=== PATIENT | female | born 1955 | race Caucasian/White ===

== ENCOUNTER 2018-06-27 16:29 | Inpatient (IN) | payer OTHER ==
[~2018-06-27] VITALS: Ht 167.6 cm; Wt 76.5 kg
[2018-06-27] MEDS ORDERED: SOD CHLORIDE 0.9% 100 ML ONE ×2 (16:52→17:40)
[2018-06-27] MEDS ORDERED: IODIXANOL LOCM 100 ML BTL ONE (16:52)
[2018-06-27] MEDS ORDERED: IOHEXOL 100 ML ONE (17:40)
[2018-06-27] MEDS ORDERED: TERB250T13 PO (17:49)
[2018-06-27] MEDS ORDERED: ASPIRIN 81 MG TAB PO ONE (18:00)
--- NOTE | 2018-06-27 18:01 | ERD ---
ER Documentation Chief Complaint Chief Complaint pt is caprice family with c/o L sided facial numbness,blurry vision, [id number] HPI This is a 63-year-old female with no reported past medical history who is presenting with transient now resolved left-sided facial numbness, facial droop and left-sided blurry vision. The patient was last known well at about 3 AM this morning. The patient was reportedly traveling back from [place]. She took a several hour flight and then took a 7-hour car ride from [place] to [place]. She got in at around 1 AM this morning and went to sleep at around 3 AM. The patient reports that she felt well with no issues at that time. The patient woke up at around 10:30 AM with her symptoms. Her symptoms seem to get better, so she went back to sleep. She woke up at around 3 PM this afternoon and her symptoms still seemed to be there. When her family assessed her, she did appear to have a left-sided facial numbness. The family reports no facial droop at that time. However, she seemed to be imbalanced, which is ultimately what prompted them to bring the patient to the hospital. The patient now reports that her symptoms have almost completely resolved. She feels fatigued and a little lightheaded, but otherwise she feels well. She denies any facial numbness or tingling. She denies any blurry vision. She denies any weakness or numbness or tingling to the extremities. She does not endorse any coordination issues. She denies any pain or swelling to the lower extremities. She denies any chest pain or shortness of breath or pleuritic pain. The patient denies feeling sick recently. The patient denies fever or chills. The patient has had no headache. The patient does not endorse neck or back pain. The patient denies dizziness. The patient denies nausea or vomiting. The patient denies abdominal pain. The patient denies changes to bowel movements or urination. ROS All systems reviewed and are negative except as per history of present illness. Medications Home Meds Reported Medications Terbinafine Hcl* (Terbinafine Hcl*) 250 Mg Tablet, 250 MG PO DAILY, TAB 06/27/18 Allergies Allergies: Coded Allergies: No Known Allergy (Unverified , 06/27/18) PMhx/Soc History of Surgery: Yes (Hysterectomy) Anesthesia Reaction: No Hx Neurological Disorder: No Hx Respiratory Disorders: No Hx Cardiac Disorders: No Hx Psychiatric Problems: No Hx Miscellaneous Medical Probl: No Hx Alcohol Use: No Hx Substance Use: No Hx Tobacco Use: No Smoking Status: Never smoker FmHx Family History: No diabetes Physical Exam Vitals Vital Signs Date Temp Pulse Resp B/P (MAP) Pulse Ox O2 O2 Flow FiO2 Time Delivery Rate 06/27/18 68 18 125/73 100 Room Air 16:40 (90) 06/27/18 98.0 74 18 129/73 97 16:37 (91) Physical Exam Const: No apparent distress, well-developed, well-nourished Head: Normocephalic, Atraumatic Eyes: Normal Conjunctiva. Extraocular movements intact. Pupils equal, round and reactive to light ENT: Normal External Ears, Nose and Mouth. Neck: Full range of motion. No meningismus. Resp: Clear to auscultation bilaterally, No wheezes, rales or rhonchi Cardio: Regular rate and rhythm. No murmurs, rubs or gallops Abd: Soft, non tender, non distended. Normal bowel sounds Skin: No petechiae or rashes Back: No midline tenderness. No CVA tenderness Ext: No cyanosis, or edema Neur: Awake and alert, oriented 4. Cranial nerves intact. No facial droop. Normal strength, sensation and coordination. Psych: Normal Mood and Affect Result Diagram: 06/27/18 1700 06/27/18 1700 Results 24 hrs Laboratory Tests Test 06/27/18 17:00 06/27/18 17:32 White Blood Count 4.1 10^3/ul Red Blood Count 4.67 10^6/ul Hemoglobin 13.7 g/dl Hematocrit 40.9 % Mean Corpuscular Volume 87.6 fl Mean Corpuscular Hemoglobin 29.3 pg Mean Corpuscular Hemoglobin Concent 33.5 g/dl Red Cell Distribution Width 13.1 % Platelet Count 228 10^3/UL Mean Platelet Volume 10.0 fl Immature Granulocytes % 0.500 % Neutrophils % 55.0 % Lymphocytes % 29.1 % Monocytes % 12.5 % Eosinophils % 2.2 % Basophils % 0.7 % Nucleated Red Blood Cells % 0.0 /100WBC Immature Granulocytes # 0.020 10^3/ul Neutrophils # 2.3 10^3/ul Lymphocytes # 1.2 10^3/ul Monocytes # 0.5 10^3/ul Eosinophils # 0.1 10^3/ul Basophils # 0.0 10^3/ul Nucleated Red Blood Cells # 0.0 10^3/ul Prothrombin Time 12.6 Sec Prothrombin Time Ratio 1.0 INR International Normalized Ratio 0.93 Activated Partial Thromboplast Time 26.1 Sec Sodium Level 139 mmol/L Potassium Level 3.7 mmol/L Chloride Level 105 mmol/L Carbon Dioxide Level 27 mmol/L Anion Gap 7 Blood Urea Nitrogen 7 mg/dl Creatinine 0.47 mg/dl Est Glomerular Filtrat Rate mL/min > 60 mL/min Glucose Level 157 mg/dl Hemoglobin A1c 5.4 % Calcium Level 9.4 mg/dl Creatine Kinase 262 IU/L Creatine Kinase Index 0.6 Creatinine Kinase MB (Mass) 1.63 ng/ml Troponin I < 0.012 ng/ml Triglycerides Level 70 mg/dl Cholesterol Level 184 mg/dl LDL Cholesterol, Calculated 81 mg/dl HDL Cholesterol 89 mg/dl Cholesterol/HDL Ratio 2.0 RATIO Ethyl Alcohol Level < 10.0 mg/dl Urine Color YELLOW Urine Clarity CLEAR Urine pH 7.0 Urine Specific [place] 1.023 Urine Ketones NEGATIVE mg/dL Urine Nitrite NEGATIVE mg/dL Urine Bilirubin NEGATIVE mg/dL Urine Urobilinogen NEGATIVE mg/dL Urine Leukocyte Esterase NEGATIVE Nicole/ul Urine Microscopic RBC 5 /HPF Urine Microscopic WBC 1 /HPF Urine Hemoglobin 1+ mg/dL Urine Glucose NEGATIVE mg/dL Urine Total Protein NEGATIVE mg/dl Urine Opiates Screen Negative Urine Barbiturates Negative Urine Amphetamines Screen Negative Urine Benzodiazepines Screen Negative Urine Cocaine Screen Negative Urine Cannabinoids Negative Current Medications Medications Dose Sig/Luisito Start Time Status Last (Trade) Ordered Route PRN Stop Time Admin Dose Reason Admin IV Flush 10 ml STK-MED 06/27/18 DC (NS 10 ml) ONCE .ROUTE 17:40 06/27/18 17:41 Sodium 100 ml @ ud STK-MED 06/27/18 DC Chloride ONCE .ROUTE 17:40 06/27/18 17:41 Iohexol 100 ml @ ud STK-MED 06/27/18 DC ONCE .ROUTE 17:40 06/27/18 17:41 Aspirin 324 mg ONCE ONCE 06/27/18 DC 06/27/18 (Aspirin) PO 18:00 18:05 06/27/18 18:01 Enoxaparin 60 mg ONCE ONCE 06/27/18 DC Sodium SC 19:00 (Lovenox) 06/27/18 19:01 Procedures/MDM MDM The patient's presentation warrants further investigation. Previous medical records, if available, were reviewed. LABS The patient's laboratory testing was obtained and reviewed. No emergent treatment was required unless described below. CBC: No E/o systemic infection or severe anemia or thrombocytopenia Chemistry: No E/o severe acidosis or alkalosis or renal failure or diabetic ketoacidosis PT/INR: No E/o significant coagulopathy Troponin: No E/o acute ischemia Urine: No E/o acute infection or hematuria Tox: No E/o alcohol abuse. EKG EKG read by me: Rate/Rhythm: Regular rate and rhythm at a rate of 66 bpm Intervals: Normal [place]: Normal Impression: No evidence of acute ischemia or arrhythmia IMAGING Imaging and Radiology interpretation reviewed. CT Head FINDINGS: There is no intracranial hemorrhage, mass effect, or midline shift. The ventricles and sulci are normal in size and configuration. there is focal hypoattenuation within the right frontal periventricular white matter. Focal and septal malacia seen of a right frontal gyrus. There is good engle-white matter differentiation throughout the cerebral hemispheres. The visualized brainstem and cerebellum are unremarkable. No extra-axial fluid collection is seen. The visualized paranasal sinuses and osseous structures are grossly unremarkable. IMPRESSION: No evidence of acute intracranial pathology. 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 The rest the brain is unremarkable. The findings were discussed with Dr. Suazo of the emergency room department at 05:00 p.m. Electronically viewed and signed by Physician Angi on 06/27/2018 17:04 CTA H&N IMPRESSION: 1. Negative for evidence of hemodynamically significant stenosis or occlusion of the major cervical and intracranial arteries. Please note that evaluation of the extracranial carotid arteries is somewhat limited due to motion artifact. Negative for significant atherosclerotic plaque. 2. Negative for evidence of dissection, aneurysm, or vascular malformation. 3. Focal hypodensity in the white matter of the right frontal lobe may be from age indeterminate ischemia. Negative for abnormal intraparenchymal enhancement. If there is concern for recent ischemia, consider brain MRI for further evaluation. 4. Acute PE to a segmental branch of the left upper lobe pulmonary artery. Recommend further evaluation with CT pulmonary angiogram. Findings are discussed with Dr Suazo by Dr. Lindsey Lares on June 27, 2018 at 5:33 pm [facility]. Measurements of cervical internal carotid artery stenosis were performed according to NASCET criteria. Direct measurements of vessel diameters was made in reference to measurements of the distal internal carotid artery diameter. Electronically viewed and signed by Physician Margarita on 06/27/2018 17:34 CXR FINDINGS: The heart is normal in size. The pulmonary vessels are normal in caliber. The lungs are clear. The costophrenic angles are sharp. The visualized bony thorax is unremarkable. IMPRESSION: No acute cardiopulmonary disease. Electronically viewed and signed by Juan Jose Rene MD, on 06/27/2018 17:48 CTA Chest FINDINGS: Normal opacification of the mediastinal structures is seen . Filling defects are noted to the right upper upper and left lower lobe pulmonary arterial tree, third order branches bilaterally consistent with acute pulmonary emboli. No aortic dissection or pericardial effusion noted. No saddle emboli seen. Lung windows demonstrate symmetric lung volumes. No subpleural blebs, pne umothorax, pleural effusion, parenchymal masses or interstitial nodularity seen. CT abdomen: Liver, distended thick-walled stomach, normal pancreas, gallbladder, upper pole left kidneys are seen. Normal opacification of the origins of celiac, SMA, bilateral renal arteries noted. Common hepatic artery arises directly from the aorta. Moderate stool noted in the bowel IMPRESSION: Bilateral pulmonary emboli to the third order branches of the right upper and left lower lung johnson Electronically viewed and signed by Physician Avelino on 06/27/2018 18:46 BLE Doppler FINDINGS: There is normal compressibility and flow within the bilateral common femoral, femoral , posterior tibial and popliteal veins. IMPRESSION: No sonographic evidence for deep venous thrombosis. Electronically viewed and signed by Kory Rodriguez MD on 06/27/2018 18:28 TREATMENT/DISPOSITION The patient presents for concerns of stroke-like symptoms. That said, the patient's symptoms are now resolved. The patient's NIH stroke scale is now 0. The patient's symptoms are potentially related to a TIA. The patient also endorsed decreased blurry vision to the left eye. A CRE O is also a possibility, though her vision is now resolved. Her visual acuity is now normal and she has no visual field deficits. The patient's CT reveals age- indeterminate ischemia in the right frontal lobe, but it appears to be encephalomalacia on the CT scan without contrast. I do not suspect an acute right frontal lobe CVA. The patient is not a TPA candidate. Additionally, there is no evidence of large vessel occlusion. The patient has not a thrombectomy candidate. The patient was treated with aspirin in the emergency department. I do feel the patient requires admission for further evaluation and management of a possible TIA. While evaluating for the possibility of TIA, the CTA of the head and neck revealed evidence concerning for an acute PE to the segmental branch of the left upper lobe pulmonary artery. A CTA of the chest was completed that revealed bilateral segmental PEs. this is likely related to her prolonged flight and drive. Bilateral lower extremity Dopplers were ordered which were negative. The patient denies any symptoms of pulmonary embolism aside from mild lightheadedness. The patient was treated with Lovenox. ADMISSION At this time, I feel that the patient requires admission for further evaluation and management. The patient will be admitted to panel in accordance with the patient's insurance. The patient was accepted by Dr. Meeks at 7 PM on June 27, 2018. CRITICAL CARE NOTE Time: 36 minutes excluding all billable procedures. Treatments/Evaluations: The patient was at risk of hemodynamic compromise. Timing of critical care involved close serial monitoring, evaluation of the patient's medical record including previous records & current laboratory/imaging studies, potential interventions for prevention of hemodynamic/ cardiopulmonary/ neurologic compromise, maintaining tight fluid balance, and any discussions with the family and/or consultants regarding the patient's status and prognosis. Disclaimer: Inadvertent spelling and grammatical errors are likely due to EHR/dictation software use and do not reflect on the overall quality of patient care. Note that the electronic time recorded on this note does not necessarily reflect the actual time of the patient encounter. Departure Diagnosis: Primary Impression: Pulmonary embolism Pulmonary embolism type: unspecified Chronicity: acute Acute cor pulmonale presence: without acute cor pulmonale Qualified Codes: I26.99 - Other pulmonary embolism without acute cor pulmonale Additional Impressions: Left facial numbness Blurry vision, left eye Lightheadedness Pre-syncope Condition: Serious FLORY SUAZO MD Jun 27, 2018 18:01
[2018-06-27] MEDS ORDERED: ENOXAPARIN 60 MG/0.6 ML SYG SC ONE (19:00)
[2018-06-27] MEDS ORDERED: NACL 0.9% 3 ML SYG IV SCH (19:30)
[2018-06-27] MEDS ORDERED: ACETAMINOPHEN 325 MG TAB PO PRN ×2 (19:30)
[2018-06-27] MEDS ORDERED: MAGNESIUM HYDROXIDE 30ML CUP PO PRN (19:30)
[2018-06-27] MEDS ORDERED: HYDROCODONE/APAP (5/325) TAB PO PRN (19:30)
[2018-06-27] MEDS ORDERED: ONDANSETRON 4 MG INJ IV PRN ×2 (19:30)
[2018-06-27] MEDS ORDERED: DOCUSATE SODIUM 100 MG CAP PO PRN (19:30)
[2018-06-27] MEDS ORDERED: hydrALAzine 20 MG INJ IV PRN (19:30)
[2018-06-27] MEDS ORDERED: morphine 2 MG INJ IV PRN (19:30)
[2018-06-27] MEDS ORDERED: LORAZEPAM 2 MG INJ IV PRN (19:30)
[2018-06-27] MEDS ORDERED: ALBUTEROL/IPRATROPIUM (NEB) 3 ML AMP HHN PRN (19:30)
[2018-06-27] MEDS ORDERED: NITROGLYCERIN (SL) 0.4 MG TAB SL PRN (19:30)
[2018-06-27] MEDS ORDERED: ATORVASTATIN 80 MG TAB PO SCH (21:00)
[2018-06-27 21:10] VITALS: BP 125/75; PULSE 64; RESP 18
[2018-06-27 21:12] VITALS: PULSE 64
[2018-06-27 21:33] VITALS: Ht 167.6 cm; Wt 76.5 kg
[2018-06-27] MEDS: SOD CHLORIDE 0.45% 1,000 ML IV SCH (22:14)
--- NOTE | 2018-06-27 23:53 | HP ---
Date/Time of Note Date/Time of Note DATE: 06/27/18 TIME: 23:53 Assessment/Plan VTE Prophylaxis Pharmacological prophylaxis: LMWH Lines/Catheters IV Catheter Type (from [facility]): Peripheral IV Assessment/Plan Assessment/Plan 1. TIA -Head CT negative for acute findings. CT Angio of the head and neck without hemodynamically significant stenosis -Follow-up MRI of the brain, 2D echo -Aspirin, statin -Speech/swallow and PT eval -Neurology consult 2. Bilateral PE: Incidentally found on CT angios the neck. This was confirmed with CTPA -Patient just traveled back from [place]. She reported long flights as well as long car ride -She is on a treatment dose Lovenox. She will be transition to oral blood thinner Result Diagram: 06/27/18 1700 06/27/18 1700 Results 24hrs Laboratory Tests Test 06/27/18 17:00 06/27/18 17:32 06/27/18 19:29 White Blood Count 4.1 L Red Blood Count 4.67 Hemoglobin 13.7 Hematocrit 40.9 Mean Corpuscular Volume 87.6 Mean Corpuscular Hemoglobin 29.3 Mean Corpuscular Hemoglobin Concent 33.5 Red Cell Distribution Width 13.1 Platelet Count 228 Mean Platelet Volume 10.0 Immature Granulocytes % 0.500 H Neutrophils % 55.0 Lymphocytes % 29.1 Monocytes % 12.5 H Eosinophils % 2.2 Basophils % 0.7 Nucleated Red Blood Cells % 0.0 Immature Granulocytes # 0.020 Neutrophils # 2.3 Lymphocytes # 1.2 Monocytes # 0.5 Eosinophils # 0.1 Basophils # 0.0 Nucleated Red Blood Cells # 0.0 Prothrombin Time 12.6 13.0 Prothrombin Time Ratio 1.0 1.0 INR International Normalized Ratio 0.93 0.97 Activated Partial Thromboplast Time 26.1 27.5 Sodium Level 139 Potassium Level 3.7 Chloride Level 105 Carbon Dioxide Level 27 Anion Gap 7 Blood Urea Nitrogen 7 Creatinine 0.47 Est Glomerular Filtrat Rate mL/min > 60 Glucose Level 157 Hemoglobin A1c 5.4 Calcium Level 9.4 Creatine Kinase 262 H Creatine Kinase Index 0.6 Creatinine Kinase MB (Mass) 1.63 Troponin I < 0.012 Triglycerides Level 70 Cholesterol Level 184 LDL Cholesterol, Calculated 81 HDL Cholesterol 89 Cholesterol/HDL Ratio 2.0 Ethyl Alcohol Level < 10.0 H Urine Color YELLOW Urine Clarity CLEAR Urine pH 7.0 Urine Specific [place] 1.023 Urine Ketones NEGATIVE Urine Nitrite NEGATIVE Urine Bilirubin NEGATIVE Urine Urobilinogen NEGATIVE Urine Leukocyte Esterase NEGATIVE Urine Microscopic RBC 5 Urine Microscopic WBC 1 Urine Hemoglobin 1+ H Urine Glucose NEGATIVE Urine Total Protein NEGATIVE Urine Opiates Screen Negative Urine Barbiturates Negative Urine Amphetamines Screen Negative Urine Benzodiazepines Screen Negative Urine Cocaine Screen Negative Urine Cannabinoids Negative Free Thyroxine 1.22 HPI/ROS Admit Date/Time Admit Date/Time Jun 27, 2018 at 19:11 Hx of Present Illness This is a 63-year-old female with no significant past medical history who was brought to the ER for left facial numbness/droop, blurry vision, generalized we akness, dizziness. Patient just returned back from [place] [employer]. She slept most of the day and woke up around 1500 with the above symptoms. When presented to ER, vitals were stable. Head CT old infarct without acute intracranial findings. CT angios of the head and neck shows focal hypodensity in the white matter of the right frontal lobe may be from age indeterminate ischemia, but without hemodynamically significant stenosis. Incidentally however, PE was noted. CTPA was then done which showed bilateral PE. As mentioned above, patient just flew back from [place]. Vital stable, oxygen saturation 94-98% on room air. PMH/Family/Social Past Medical History Medical History: other (See HPI) Medications Current Medications Ondansetron HCl (Zofran Inj) 4 mg ER BRIDGE PRN IV NAUSEA/VOMITING; Start 06/27/18 at 19:30; Stop 06/28/18 at 19:29 Acetaminophen (Tylenol Tab) 650 mg ER BRIDGE PRN PO .MILD PAIN 1-3 OR TEMP; Start 06/27/18 at 19:30; Stop 06/28/18 at 19:29 IV Flush (NS 3 ml) 3 ml PER PROTOCOL IV ; Start 06/27/18 at 19:30 Ondansetron HCl (Zofran Inj) 4 mg Q6H PRN IV NAUSEA/VOMITING; Start 06/27/18 at 19:30 Acetaminophen (Tylenol Tab) 650 mg Q6H PRN PO .PAIN 1-3 OR TEMP; Start 06/27/18 at 19:30 Acetaminophen/ Hydrocodone Bitart ([place] (5/325)) 1 tab Q6H PRN PO .MOD PAIN 4- 6; Start 06/27/18 at 19:30 Morphine Sulfate (morphine) 2 mg Q4H PRN IV .SEVERE PAIN 7-10; Start 06/27/18 at 19:30 Docusate Sodium (Colace) 100 mg Q12H PRN PO .CONSTIPATION; Start 06/27/18 at 19:30 Magnesium Hydroxide (Milk Of Mag) 30 ml DAILY PRN PO .CONSTIPATION; Start 06/27/18 at 19:30 Sodium Chloride 1,000 ml @ 75 mls/hr [id number] IV Last administered on 06/27/18at 22:14; Admin Dose 75 MLS/HR; Start 06/27/18 at 19:06 Lorazepam (Ativan) 0.5 mg Q6H PRN IV ANXIETY; Start 06/27/18 at 19:30 Albuterol/ Ipratropium (Duoneb) 3 ml Q4H RESP THERAPY PRN HHN SHORTNESS OF BREATH; Start 06/27/18 at 19:30 Hydralazine HCl (Apresoline) 10 mg Q6H PRN IV ELEVATED BLOOD PRESSURE; Start 06/27/18 at 19:30 Nitroglycerin (Nitroglycerin (Sl Tab) 0.4 Mg) 1 tab Q5M PRN SL ANGINA; Start 06/27/18 at 19:30 Aspirin (Ecotrin) 325 mg DAILY PO ; Start 06/28/18 at 09:00 Atorvastatin Calcium (Lipitor) 80 mg HS PO Last administered on 06/27/18at 22:14; Admin Dose 80 MG; Start 06/27/18 at 21:00 Coded Allergies: No Known Allergy (Unverified , 06/27/18) Past Surgical History Past Surgical Hx: other (See HPI) Family History Significant Family History: no pertinent family hx Social History Alcohol Use: none Smoking Status: Never smoker Drug Use: none Exam/Review of Systems Vital Signs Vitals Vital Signs Date Temp Pulse Resp B/P (MAP) Pulse Ox O2 O2 Flow FiO2 Time Delivery Rate 06/27/18 97.9 64 18 125/75 95 Room Air 21:10 (92) Exam Constitutional: other (No acute distress) Head: normocephalic, atraumatic Eyes: EOMI, PERRL Respiratory: normal air movement Cardiovascular: regular rate and rhythm, nl pulses Gastrointestinal: soft Extremities: normal pulses RADHA ZUNIGA MD Jun 27, 2018 23:53
[2018-06-28] VITALS (9 sets, daily range): BP systolic 97–112; BP diastolic 50–69; PULSE 64–75; RESP 18
[2018-06-28] MEDS: SOD CHLORIDE 0.45% 1,000 ML IV SCH ×3 (08:26→21:55)
[2018-06-28] MEDS: ENOXAPARIN 80 MG/0.8 ML SYG SC SCH ×2 (08:32→21:00)
[2018-06-28] MEDS ORDERED: ASPIRIN (EC) 325 MG TAB PO SCH (09:00)
[2018-06-28] MEDS ORDERED: ASPIRIN (EC) 81 MG TAB PO SCH (09:00)
--- NOTE | 2018-06-28 09:18 | CONS ---
Assessment/Plan Assessment/Plan Hospital Course 63 F w/o reported PMHx, who presents for evaluation of hemifacial numbness...for which neurology is consulted.. 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 Of note, she was additionally found to have acute pulmonary emboli...for which she is now on therapeutic anticoagulation. The clinical picture raises suspicion for intracardiac shunt.. CTA Head and Neck are without significant cerebrovascular pathology.. LDL, A1C, UDS ok P: Low threshold to repeat head CT for interval neurologic change, given anticoagulation in the context of acute stroke. Hold asa while on therapeutic anticoagulation.. Lipitor OK Await echocardiogram Add ESR, RPR PT/OT/ST as necessary Other management per primary Will follow clinically Consultation Date/Type/Reason Admit Date/Time Jun 27, 2018 at 19:11 Type of Consult Neurology Reason for Consultation L face numbness/weakness; eval for stroke Requesting Provider: DAVID LALA Date/Time of Note DATE: 06/28/18 TIME: 09:18 Hx of Present Illness The pt confirms the story below. She endorses diminished facial sensation on the L; currently denies other neuro logic sx. It is elsewhere noted: Hx of Present Illness This is a 63-year-old female with no significant past medical history who was brought to the ER for left facial numbness/droop, blurry vision, generalized weakness, dizziness. Patient just returned back from [place] [employer] [place]. She slept most of the day and woke up around 1500 with the above symptoms. When presented to ER, vitals were stable. Head CT old infarct without acute intracranial findings. CT angios of the head and neck shows focal hypodensity in the white matter of the right frontal lobe may be from age indeterminate ischemia, but without hemodynamically significant stenosis. Incidentally however, PE was noted. CTPA was then done which showed bilateral PE. As mentioned above, patient just flew back from [place]. Vital stable, oxygen saturation 94-98% on room air. negative unless noted otherwise in HPI Exam/Review of Systems Exam Vitals Vital Signs Date Temp Pulse Resp B/P (MAP) Pulse Ox O2 O2 Flow FiO2 Time Delivery Rate 06/28/18 64 08:08 06/28/18 98.5 18 104/63 94 07:14 (77) 06/28/18 Room Air 04:00 Intake and Output 06/27/18 06/27/18 06/28/18 1515:00 23:00 07:00 IntakeIntake Total 400 ml BalanceBalance 400 ml Exam PE: Gen Appearance: No Apparent Distress HEENT: Normocephalic Cardiovascular: Regular rate Lungs: Clear bilaterally Abdomen: Soft Extremities: Dry NE: The patient was alert and oriented.. Language was normal. Fund of knowledge was normal. Pupils were equal and reactive to light. There was no afferent pupillary defect. Visual johnson were normal. Funduscopic examination was limited. Extra-ocular movements were full. Ptosis was absent. There was no nystagmus. Facial sensation was diminished on paulette L. Face was symmetric with normal strength. Hearing was intact. Palate movements were normal. Neck strength was normal. There was normal tongue bulk and speed of movement. Tone was normal. Muscle bulk was normal. I did not see fasciculations. Arms and legs were strong. Vibration sensation was normal. Temperature and pinprick sensation was normal. Rapid alternating movements were normal. There was no dysmetria. There was no intention tremor. Gait was deferred due to bedrest. Arm and leg reflexes were 2+ and symmetric. Chaney's sign was absent. Plantar responses were flexor. Results Result Diagram: 06/28/1862206/28/1823 Results 24hrs Laboratory Tests Test 06/27/18 17:00 06/27/18 17:32 06/27/18 19:29 06/28/18 06:23 White Blood Count 4.1 L 4.3 L Red Blood Count 4.67 4.47 Hemoglobin 13.7 12.9 Hematocrit 40.9 38.5 Mean Corpuscular 87.6 86.1 Volume Mean Corpuscular 29.3 28.9 L Hemoglobin Mean Corpuscular 33.5 33.5 Hemoglobin Concent Red Cell 13.1 13.2 Distribution Width Platelet Count 228 242 Mean Platelet Volume 10.0 9.9 Immature 0.500 H 0.000 L Granulocytes % Neutrophils % 55.0 55.7 Lymphocytes % 29.1 27.3 Monocytes % 12.5 H 11.5 H Eosinophils % 2.2 4.6 Basophils % 0.7 0.9 Nucleated Red Blood 0.0 0.0 Cells % Immature 0.020 0.000 Granulocytes # Neutrophils # 2.3 2.4 Lymphocytes # 1.2 1.2 Monocytes # 0.5 0.5 Eosinophils # 0.1 0.2 Basophils # 0.0 0.0 Nucleated Red Blood 0.0 0.0 Cells # Prothrombin Time 12.6 13.0 Prothrombin Time 1.0 1.0 Ratio INR International 0.93 0.97 Normalized Ratio Activated 26.1 27.5 Partial Thromboplast Time Sodium Level 139 140 Potassium Level 3.7 3.9 Chloride Level 105 107 Carbon Dioxide Level 27 27 Anion Gap 7 6 Blood Urea Nitrogen 7 9 Creatinine 0.47 0.46 Est Glomerular > 60 > 60 Filtrat Rate mL/min Glucose Level 157 92 # Hemoglobin A1c 5.4 5.3 Calcium Level 9.4 8.8 Creatine Kinase 262 H Creatine Kinase 0.6 Index Creatinine Kinase MB 1.63 (Mass) Troponin I < 0.012 Triglycerides Level 70 63 Cholesterol Level 184 165 LDL Cholesterol, 81 76 Calculated HDL Cholesterol 89 76 # Cholesterol/HDL 2.0 2.1 Ratio Ethyl Alcohol Level < 10.0 H Urine Color YELLOW Urine Clarity CLEAR Urine pH 7.0 Urine Specific 1.023 [place] Urine Ketones NEGATIVE Urine Nitrite NEGATIVE Urine Bilirubin NEGATIVE Urine Urobilinogen NEGATIVE Urine Leukocyte NEGATIVE Esterase Urine Microscopic 5 RBC Urine Microscopic 1 WBC Urine Hemoglobin 1+ H Urine Glucose NEGATIVE Urine Total Protein NEGATIVE Urine Opiates Screen Negative Urine Barbiturates Negative Urine Amphetamines Negative Screen Urine Negative Benzodiazepines Screen Urine Cocaine Screen Negative Urine Cannabinoids Negative Free Thyroxine 1.22 Phosphorus Level 5.0 H Magnesium Level 2.0 Thyroid Stimulating 2.630 Hormone (TSH) Medications Medication Current Medications Ondansetron HCl (Zofran Inj) 4 mg ER BRIDGE PRN IV NAUSEA/VOMITING; Start 06/16 05/06 at 19:30; Stop 06/28/18 at 19:29 Acetaminophen (Tylenol Tab) 650 mg ER BRIDGE PRN PO .MILD PAIN 1-3 OR TEMP; Start 06/27/18 at 19:30; Stop 06/28/18 at 19:29 IV Flush (NS 3 ml) 3 ml PER PROTOCOL IV ; Start 06/27/18 at 19:30 Ondansetron HCl (Zofran Inj) 4 mg Q6H PRN IV NAUSEA/VOMITING; Start 06/27/18 at 19:30 Acetaminophen (Tylenol Tab) 650 mg Q6H PRN PO .PAIN 1-3 OR TEMP; Start 06/27/18 at 19:30 Acetaminophen/ Hydrocodone Bitart ([place]rett (5/325)) 1 tab Q6H PRN PO .MOD PAIN 4- 6; Start 06/27/18 at 19:30 Morphine Sulfate (morphine) 2 mg Q4H PRN IV .SEVERE PAIN 7-10; Start 06/27/18 at 19:30 Docusate Sodium (Colace) 100 mg Q12H PRN PO .CONSTIPATION; Start 06/27/18 at 19:30 Magnesium Hydroxide (Milk Of Mag) 30 ml DAILY PRN PO .CONSTIPATION; Start 06/27/18 at 19:30 Sodium Chloride 1,000 ml @ 75 mls/hr [id number] IV Last administered on 06/27/18at 22:14; Admin Dose 75 MLS/HR; Start 06/27/18 at 19:06 Lorazepam (Ativan) 0.5 mg Q6H PRN IV ANXIETY; Start 06/27/18 at 19:30 Albuterol/ Ipratropium (Duoneb) 3 ml Q4H RESP THERAPY PRN HHN SHORTNESS OF BREATH; Start 06/27/18 at 19:30 Hydralazine HCl (Apresoline) 10 mg Q6H PRN IV ELEVATED BLOOD PRESSURE; Start 06/27/18 at 19:30 Nitroglycerin (Nitroglycerin (Sl Tab) 0.4 Mg) 1 tab Q5M PRN SL ANGINA; Start 06/27/18 at 19:30 Atorvastatin Calcium (Lipitor) 80 mg HS PO Last administered on 06/27/18at 22:14; Admin Dose 80 MG; Start 06/27/18 at 21:00 Enoxaparin Sodium (Lovenox) 75 mg Q12 SC Last administered on 06/28/18at 08:32; Admin Dose 75 MG; Start 06/28/18 at 09:00 Aspirin (Halfprin) 81 mg DAILY PO Last administered on 06/28/18at 08:27; Admin Dose 81 MG; Start 06/28/18 at 09:00 Past Medical History reviewed Medical History: other (See HPI) Home Meds Reported Medications Terbinafine Hcl* (Terbinafine Hcl*) 250 Mg Tablet, 250 MG PO DAILY, TAB 06/27/18 Medications Current Medications Ondansetron HCl (Zofran Inj) 4 mg ER BRIDGE PRN IV NAUSEA/VOMITING; Start 06/27/18 at 19:30; Stop 06/28/18 at 19:29 Acetaminophen (Tylenol Tab) 650 mg ER BRIDGE PRN PO .MILD PAIN 1-3 OR TEMP; Start 06/27/18 at 19:30; Stop 06/28/18 at 19:29 IV Flush (NS 3 ml) 3 ml PER PROTOCOL IV ; Start 06/27/18 at 19:30 Ondansetron HCl (Zofran Inj) 4 mg Q6H PRN IV NAUSEA/VOMITING; Start 06/27/18 at 19:30 Acetaminophen (Tylenol Tab) 650 mg Q6H PRN PO .PAIN 1-3 OR TEMP; Start 06/27/18 at 19:30 Acetaminophen/ Hydrocodone Bitart ([place] (5/325)) 1 tab Q6H PRN PO .MOD PAIN 4- 6; Start 06/27/18 at 19:30 Morphine Sulfate (morphine) 2 mg Q4H PRN IV .SEVERE PAIN 7-10; Start 06/27/18 at 19:30 Docusate Sodium (Colace) 100 mg Q12H PRN PO .CONSTIPATION; Start 06/27/18 at 19:30 Magnesium Hydroxide (Milk Of Mag) 30 ml DAILY PRN PO .CONSTIPATION; Start 06/27 at 19:30 Sodium Chloride 1,000 ml @ 75 mls/hr [id number] IV Last administered on 06/27/18at 22:14; Admin Dose 75 MLS/HR; Start 06/27/18 at 19:06 Lorazepam (Ativan) 0.5 mg Q6H PRN IV ANXIETY; Start 06/27/18 at 19:30 Albuterol/ Ipratropium (Duoneb) 3 ml Q4H RESP THERAPY PRN HHN SHORTNESS OF BREATH; Start 06/27/18 at 19:30 Hydralazine HCl (Apresoline) 10 mg Q6H PRN IV ELEVATED BLOOD PRESSURE; Start 06/27/18 at 19:30 Nitroglycerin (Nitroglycerin (Sl Tab) 0.4 Mg) 1 tab Q5M PRN SL ANGINA; Start 06/27/18 at 19:30 Atorvastatin Calcium (Lipitor) 80 mg HS PO Last administered on 06/27/18at 22:14; Admin Dose 80 MG; Start 06/27/18 at 21:00 Enoxaparin Sodium (Lovenox) 75 mg Q12 SC Last administered on 06/28/18at 08:32; Admin Dose 75 MG; Start 06/28/18 at 09:00 Aspirin (Halfprin) 81 mg DAILY PO Last administered on 06/28/18at 08:27; Admin Dose 81 MG; Start 06/28/18 at 09:00 Allergies: Coded Allergies: No Known Allergy (Unverified , 06/27/18) Past Surgical History reviewed Past Surgical Hx: other (See HPI) Social History reviewed Alcohol Use: none Smoking Status: Never smoker Drug Use: none JANINE SAMUELS NP Jun 28, 2018 09:18 FELICITY SMILEY Jun 28, 2018 12:43
--- NOTE | 2018-06-28 10:59 | PN ---
Date/Time of Note Date/Time of Note DATE: 06/28/18 TIME: 10:55 Assessment/Plan VTE Prophylaxis Risk score (from Ns)>0 risk: 2 SCD applied (from [facility]): No SCD contraindicated: other Pharmacological prophylaxis: LMWH Lines/Catheters IV C[facility]ter Type (from [facility]): Peripheral IV Assessment/Plan Hospital Course S: O: Vs - see below PE: Constitutional: lying in bed, no acute distress Head: normocephalic, atraumatic Eyes: EOMI, PERRL Respiratory: normal air movement Cardiovascular: regular rate and rhythm, nl pulses Gastrointestinal: soft Extremities: normal pulses MRI brain: IMPRESSION: 1. Acute infarct in the left thalamus. 2. Mild diffuse volume loss with mild chronic microvascular ischemic disease in the periventricular and deep white matter. 3. Small area of chronic infarct in the right frontal lobe. Assessment/Plan: 63-year-old female who presents with: 1. Left-sided weakness: Patient initially was diagnosed with TIA. However MRI brain results noted of the acute infarct in the left thalamus. Patient presently has no signs of any focal deficits.-Head CT negative for acute findings. CT Angio of the head and neck without hemodynamically significant stenosis as well per -Continue high-dose aspirin, statin, and continue to allow for permissive hypertension -Follow-up speech/swallow and PT eval -Neurology consulted as well, follow the recommendations. 2. Bilateral PE: Incidentally found on CT angios the neck. This was confirmed with CTPA-Patient just traveled back from [place]. She reported long flights as well as long car ride -Continue patient on treatment dose Lovenox. She will be transition to oral blood thinner upon discharge most likely Result Diagram: 06/28/18 0623 06/28/18 0623 Results 24hrs Laboratory Tests Test 06/27/18 17:00 06/27/18 17:32 06/27/18 19:29 06/28/18 06:23 White Blood Count 4.1 L 4.3 L Red Blood Count 4.67 4.47 Hemoglobin 13.7 12.9 Hematocrit 40.9 38.5 Mean Corpuscular 87.6 86.1 Volume Mean Corpuscular 29.3 28.9 L Hemoglobin Mean Corpuscular 33.5 33.5 Hemoglobin Concent Red Cell 13.1 13.2 Distribution Width Platelet Count 228 242 Mean Platelet Volume 10.0 9.9 Immature 0.500 H 0.000 L Granulocytes % Neutrophils % 55.0 55.7 Lymphocytes % 29.1 27.3 Monocytes % 12.5 H 11.5 H Eosinophils % 2.2 4.6 Basophils % 0.7 0.9 Nucleated Red Blood 0.0 0.0 Cells % Immature 0.020 0.000 Granulocytes # Neutrophils # 2.3 2.4 Lymphocytes # 1.2 1.2 Monocytes # 0.5 0.5 Eosinophils # 0.1 0.2 Basophils # 0.0 0.0 Nucleated Red Blood 0.0 0.0 Cells # Prothrombin Time 12.6 13.0 Prothrombin Time 1.0 1.0 Ratio INR International 0.93 0.97 Normalized Ratio Activated 26.1 27.5 Partial Thromboplast Time Sodium Level 139 140 Potassium Level 3.7 3.9 Chloride Level 105 107 Carbon Dioxide Level 27 27 Anion Gap 7 6 Blood Urea Nitrogen 7 9 Creatinine 0.47 0.46 Est Glomerular > 60 > 60 Filtrat Rate mL/min Glucose Level 157 92 # Hemoglobin A1c 5.4 5.3 Calcium Level 9.4 8.8 Creatine Kinase 262 H Creatine Kinase 0.6 Index Creatinine Kinase MB 1.63 (Mass) Troponin I < 0.012 Triglycerides Level 70 63 Cholesterol Level 184 165 LDL Cholesterol, 81 76 Calculated HDL Cholesterol 89 76 # Cholesterol/HDL 2.0 2.1 Ratio Ethyl Alcohol Level < 10.0 H Urine Color YELLOW Urine Clarity CLEAR Urine pH 7.0 Urine Specific 1.023 [place] Urine Ketones NEGATIVE Urine Nitrite NEGATIVE Urine Bilirubin NEGATIVE Urine Urobilinogen NEGATIVE Urine Leukocyte NEGATIVE Esterase Urine Microscopic 5 RBC Urine Microscopic 1 WBC Urine Hemoglobin 1+ H Urine Glucose NEGATIVE Urine Total Protein NEGATIVE Urine Opiates Screen Negative Urine Barbiturates Negative Urine Amphetamines Negative Screen Urine Negative Benzodiazepines Screen Urine Cocaine Screen Negative Urine Cannabinoids Negative Free Thyroxine 1.22 Phosphorus Level 5.0 H Magnesium Level 2.0 Thyroid Stimulating 2.630 Hormone (TSH) Exam/Review of Systems Exam Vitals Vital Signs Date Temp Pulse Resp B/P (MAP) Pulse Ox O2 O2 Flow FiO2 Time Delivery Rate 06/28/18 64 08:08 06/28/18 98.5 18 104/63 94 07:14 (77) 06/28/18 Room Air 04:00 Intake and Output 06/27/18 06/27/18 06/28/18 1515:00 23:00 07:00 IntakeIntake Total 400 ml BalanceBalance 400 ml Results Results 24hrs Laboratory Tests Test 06/27/18 17:00 06/27/18 17:32 06/27/18 19:29 06/28/18 06:23 White Blood Count 4.1 L 4.3 L Red Blood Count 4.67 4.47 Hemoglobin 13.7 12.9 Hematocrit 40.9 38.5 Mean Corpuscular 87.6 86.1 Volume Mean Corpuscular 29.3 28.9 L Hemoglobin Mean Corpuscular 33.5 33.5 Hemoglobin Concent Red Cell 13.1 13.2 Distribution Width Platelet Count 228 242 Mean Platelet Volume 10.0 9.9 Immature 0.500 H 0.000 L Granulocytes % Neutrophils % 55.0 55.7 Lymphocytes % 29.1 27.3 Monocytes % 12.5 H 11.5 H Eosinophils % 2.2 4.6 Basophils % 0.7 0.9 Nucleated Red Blood 0.0 0.0 Cells % Immature 0.020 0.000 Granulocytes # Neutrophils # 2.3 2.4 Lymphocytes # 1.2 1.2 Monocytes # 0.5 0.5 Eosinophils # 0.1 0.2 Basophils # 0.0 0.0 Nucleated Red Blood 0.0 0.0 Cells # Prothrombin Time 12.6 13.0 Prothrombin Time 1.0 1.0 Ratio INR International 0.93 0.97 Normalized Ratio Activated 26.1 27.5 Partial Thromboplast Time Sodium Level 139 140 Potassium Level 3.7 3.9 Chloride Level 105 107 Carbon Dioxide Level 27 27 Anion Gap 7 6 Blood Urea Nitrogen 7 9 Creatinine 0.47 0.46 Est Glomerular > 60 > 60 Filtrat Rate mL/min Glucose Level 157 92 # Hemoglobin A1c 5.4 5.3 Calcium Level 9.4 8.8 Creatine Kinase 262 H Creatine Kinase 0.6 Index Creatinine Kinase MB 1.63 (Mass) Troponin I < 0.012 Triglycerides Level 70 63 Cholesterol Level 184 165 LDL Cholesterol, 81 76 Calculated HDL Cholesterol 89 76 # Cholesterol/HDL 2.0 2.1 Ratio Ethyl Alcohol Level < 10.0 H Urine Color YELLOW Urine Clarity CLEAR Urine pH 7.0 Urine Specific 1.023 [place] Urine Ketones NEGATIVE Urine Nitrite NEGATIVE Urine Bilirubin NEGATIVE Urine Urobilinogen NEGATIVE Urine Leukocyte NEGATIVE Esterase Urine Microscopic 5 RBC Urine Microscopic 1 WBC Urine Hemoglobin 1+ H Urine Glucose NEGATIVE Urine Total Protein NEGATIVE Urine Opiates Screen Negative Urine Barbiturates Negative Urine Amphetamines Negative Screen Urine Negative Benzodiazepines Screen Urine Cocaine Screen Negative Urine Cannabinoids Negative Free Thyroxine 1.22 Phosphorus Level 5.0 H Magnesium Level 2.0 Thyroid Stimulating 2.630 Hormone (TSH) Medications Medication Current Medications Ondansetron HCl (Zofran Inj) 4 mg ER BRIDGE PRN IV NAUSEA/VOMITING; Start 06/27/18 at 19:30; Stop 06/28/18 at 19:29 Acetaminophen (Tylenol Tab) 650 mg ER BRIDGE PRN PO .MILD PAIN 1-3 OR TEMP; Start 06/27/18 at 19:30; Stop 06/28/18 at 19:29 IV Flush (NS 3 ml) 3 ml PER PROTOCOL IV ; Start 06/27/18 at 19:30 Ondansetron HCl (Zofran Inj) 4 mg Q6H PRN IV NAUSEA/VOMITING; Start 06/27/18 at 19:30 Acetaminophen (Tylenol Tab) 650 mg Q6H PRN PO .PAIN 1-3 OR TEMP; Start 06/27/18 at 19:30 Acetaminophen/ Hydrocodone Bitart ([place] (5/325)) 1 tab Q6H PRN PO .MOD PAIN 4- 6; Start 06/27/18 at 19:30 Morphine Sulfate (morphine) 2 mg Q4H PRN IV .SEVERE PAIN 7-10; Start 06/27/18 at 19:30 Docusate Sodium (Colace) 100 mg Q12H PRN PO .CONSTIPATION; Start 06/27/18 at 19:30 Magnesium Hydroxide (Milk Of Mag) 30 ml DAILY PRN PO .CONSTIPATION; Start 06/27/18 at 19:30 Sodium Chloride 1,000 ml @ 75 mls/hr [id number] IV Last administered on 06/28/18at 10:11; Admin Dose 75 MLS/HR; Start 06/27/18 at 19:06 Lorazepam (Ativan) 0.5 mg Q6H PRN IV ANXIETY; Start 06/27/18 at 19:30 Albuterol/ Ipratropium (Duoneb) 3 ml Q4H RESP THERAPY PRN HHN SHORTNESS OF BREATH; Start 06/27/18 at 19:30 Hydralazine HCl (Apresoline) 10 mg Q6H PRN IV ELEVATED BLOOD PRESSURE; Start 06/27/18 at 19:30 Nitroglycerin (Nitroglycerin (Sl Tab) 0.4 Mg) 1 tab Q5M PRN SL ANGINA; Start 06/27/18 at 19:30 Atorvastatin Calcium (Lipitor) 80 mg HS PO Last administered on 06/27/18at 22:14; Admin Dose 80 MG; Start 06/27/18 at 21:00 Enoxaparin Sodium (Lovenox) 75 mg Q12 SC Last administered on 06/28/18at 08:32; Admin Dose 75 MG; Start 06/28/18 at 09:00 Aspirin (Halfprin) 81 mg DAILY PO Last administered on 06/28/18at 08:27; Admin Dose 81 MG; Start 06/28/18 at 09:00 DAVID LALA Jun 28, 2018 10:59
--- NOTE | 2018-06-28 13:57 | RADRPT ---
Echocardiogram Report Patient Name: BETSY PARSONSPatient ID: [id number] : 1955 (63y )Study Date: 06/28/2018 8:28:19 AM Gender: FAccession #: [id number] Tech: [facility] – [place], [place] Location: Ref.Physician: DAVID LALA Height(Cm): 168 BSA: 1.66Weight(Kg): 59 Quality: AdequateAccount #: Procedures: Echocardiographic Report: Transthoracic echocardiogram with complete 2D, M-Mode, and doppler examination. Indications: Transient Ischemic Attack. Measurements: 2D/M Mode Doppler Measurement Value Normal Range Measurement Value Normal Range LVIDd 2D 4.7 [ 3.8 - 5.2 ] cm AV Peak Jeff 1.6 [ 100.0 - 170.0 ] cm/se c LVIDs 2D 2.6 [ 2.2 - 3.5 ] cm AV Peak PG 10.0 [ 2.0 - 9.0 ] mmHg LVPWd 2D 0.8 [ 0.6 - 0.9 ] cm LVOT Peak Jeff 0.8 [ 70.0 - 110.0 ] cm/sec IVSd 2D 1.0 [ 0.6 - 0.9 ] cm LVOT Peak PG 2.0 [ 2.0 - 6.0 ] mmHg AoR Diam 2D 3.7 [ 2.3 - 3.1 ] cm MV E Peak Jeff 0.6 [ 60.0 - 130.0 ] cm/sec EDV 2D 102.0 [ 46.0 - 106.0 ] ml MV A Peak Jeff 0.7 [ 100.0 - 120.0 ] cm/se c ESV 2D 23.7 [ 14.0 - 42.0 ] ml MV E/A 0.9 [ 0.8 - 1.5 ] ratio EF 2D 76.8 [ 54.0 - 74.0 ] percent MV PHT 69.0 [ 20.0 - 100.0 ] msec LA Dimen 2D 3.6 [ 2.7 - 3.8 ] cm MV Decel Time 235 [ 104 - 258 ] msec MV Decel [place] 3 Lat E` Jeff 0.1 [ 10.0 - 15.0 ] cm/sec Lateral E/E` 5.1 [ 1.0 - 2.0 ] ratio Med E` Jeff 0.1 cm/sec MV E/A 0.9 [ 0.8 - 1.5 ] ratio MVA PHT 3.2 [ 2.0 - 4.0 ] cm2 TR Peak Jeff 2.0 [ 100.0 - 280.0 ] cm/se c TR Peak PG 16.0 mmHg PV Peak Jeff 1.0 [ 40.0 - 80.0 ] cm/sec PV Peak PG 4.0 mmHg RVSP 19.0 [ 10.0 - 36.0 ] mmHg RA Pressure 3.0 mmHg Findings: Left Ventricle: Normal left ventricular systolic function. Normal left ventricular cavity size. Normal left ventricular wall thickness. Ejection fraction is visually estimated at 65 %. Tissue Doppler/Mitral Doppler indices are within normal limits. E/E'= 5. Right Ventricle: Normal right ventricular size. Normal right ventricular systolic function. Left Atrium: The left atrium is normal in size. Right Atrium: The right atrium is normal in size. Mitral Valve: Normal appearance and function of the mitral valve with trace physiologic regurgitation. Aortic Valve: No significant aortic stenosis or insufficiency. Normal trileaflet aortic valve structure. Tricuspid Valve: Normal appearance and function of the tricuspid valve with trace physiologic regurgitation. Normal right ventricular systolic pressure. Estimated peak PA systolic pressure 19 mmHg. Pulmonic Valve: Normal pulmonic valve appearance. Pericardium: Normal pericardium with no significant pericardial effusion. Aorta: Normal aortic root. IVC: Normal size and normal respiratory collapse consistent with normal right atrial pressure. Pulmonary Artery: Normal pulmonary artery size. Conclusions: Normal left ventricular systolic function. Normal left ventricular cavity size. Normal left ventricular wall thickness. Ejection fraction is visually estimated at 65 %. Tissue Doppler/Mitral Doppler indices are within normal limits. E/E'= 5. Normal right ventricular size. Normal right ventricular systolic function. Normal appearance and function of the mitral valve with trace physiologic regurgitation. No significant aortic stenosis or insufficiency. Normal trileaflet aortic valve structure. Normal appearance and function of the tricuspid valve with trace physiologic regurgitation. Normal right ventricular systolic pressure. Estimated peak PA systolic pressure 19 mmHg. Normal pericardium with no significant pericardial effusion. 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 Electronically Signed By: Elver Blankenship 2018-06-28 13:56:02 PDT
[2018-06-28] MEDS: ATORVASTATIN 40 MG TAB PO SCH (20:43)
[2018-06-29] VITALS (8 sets, daily range): BP systolic 101–110; BP diastolic 60–70; PULSE 58–69; RESP 18
[2018-06-29] MEDS: SOD CHLORIDE 0.45% 1,000 ML IV SCH (08:37)
[2018-06-29] MEDS: ENOXAPARIN 80 MG/0.8 ML SYG SC SCH ×2 (08:47→20:58)
--- NOTE | 2018-06-29 11:02 | PN ---
Date/Time of Note Date/Time of Note DATE: 06/29/18 TIME: 11:01 Assessment/Plan VTE Prophylaxis Risk score (from Ns)>0 risk: 5 SCD applied (from [facility]): No SCD contraindicated: other Pharmacological prophylaxis: LMWH Lines/Catheters IV Catheter Type (from [facility]): Peripheral IV Assessment/Plan Hospital Course S: Patient had no acute events overnight, tolerating diet. Seen by neurology t eam yesterday. No focal deficits. O: Vs - see below PE: Constitutional: lying in bed, no acute distress Head: normocephalic, atraumatic Eyes: EOMI, PERRL Respiratory: normal air movement Cardiovascular: regular rate and rhythm, nl pulses Gastrointestinal: soft Extremities: normal pulses MRI brain: IMPRESSION: 1. Acute infarct in the left thalamus. 2. Mild diffuse volume loss with mild chronic microvascular ischemic disease in the periventricular and deep white matter. 3. Small area of chronic infarct in the right frontal lobe. Assessment/Plan: 63-year-old female who presents with: 1. Left-sided weakness: Patient initially was diagnosed with TIA. However MRI brain results noted of the acute infarct in the left thalamus. Patient presently has no signs of any focal deficits.-Head CT negative for acute findings. CT Angio of the head and neck without hemodynamically significant stenosis as well. -Continue aspirin, statin, and continue to allow for permissive hypertension per neurology recommended -Follow further neurology recommendation 2. Bilateral PE: Incidentally found on CT angio the neck. This was confirmed with CTPA - Patient just traveled back from [place]. She reported long flights as well as long car ride. -Continue patient on treatment dose Lovenox. She will be transition to oral blood thinner upon discharge most likely --Case management working on getting approval for home anticoagulant p.o. medication based on her insurance Result Diagram: 06/29/18 0617 06/29/18 0617 Results 24hrs Laboratory Tests Test 06/28/18 13:17 06/29/18 06:17 Erythrocyte Sedimentation Rate 10 White Blood Count 4.4 L Red Blood Count 4.24 Hemoglobin 12.6 Hematocrit 37.0 Mean Corpuscular Volume 87.3 Mean Corpuscular Hemoglobin 29.7 Mean Corpuscular Hemoglobin Concent 34.1 Red Cell Distribution Width 12.9 Platelet Count 239 Mean Platelet Volume 10.2 Immature Granulocytes % 0.200 Neutrophils % 55.4 Lymphocytes % 29.3 Monocytes % 9.9 Eosinophils % 4.3 Basophils % 0.9 Nucleated Red Blood Cells % 0.0 Immature Granulocytes # 0.010 Neutrophils # 2.5 Lymphocytes # 1.3 Monocytes # 0.4 Eosinophils # 0.2 Basophils # 0.0 Nucleated Red Blood Cells # 0.0 Sodium Level 139 Potassium Level 3.8 Chloride Level 104 Carbon Dioxide Level 27 Anion Gap 8 Blood Urea Nitrogen 9 Creatinine 0.42 L Est Glomerular Filtrat Rate mL/min > 60 Glucose Level 91 Calcium Level 8.7 Exam/Review of Systems Exam Vitals Vital Signs Date Temp Pulse Resp B/P (MAP) Pulse Ox O2 O2 Flow FiO2 Time Delivery Rate 06/29/18 61 08:09 06/29/18 Room Air 08:05 06/29/18 98.3 18 110/68 94 07:23 (82) 06/28/18 21 21:38 Intake and Output 06/28/18 06/28/18 06/29/18 1515:00 23:00 07:00 IntakeIntake Total 400 ml 1750 ml 525 ml BalanceBalance 400 ml 1750 ml 525 ml Results Results 24hrs Laboratory Tests Test 06/28/18 13:17 06/29/18 06:17 Erythrocyte Sedimentation Rate 10 White Blood Count 4.4 L Red Blood Count 4.24 Hemoglobin 12.6 Hematocrit 37.0 Mean Corpuscular Volume 87.3 Mean Corpuscular Hemoglobin 29.7 Mean Corpuscular Hemoglobin Concent 34.1 Red Cell Distribution Width 12.9 Platelet Count 239 Mean Platelet Volume 10.2 Immature Granulocytes % 0.200 Neutrophils % 55.4 Lymphocytes % 29.3 Monocytes % 9.9 Eosinophils % 4.3 Basophils % 0.9 Nucleated Red Blood Cells % 0.0 Immature Granulocytes # 0.010 Neutrophils # 2.5 Lymphocytes # 1.3 Monocytes # 0.4 Eosinophils # 0.2 Basophils # 0.0 Nucleated Red Blood Cells # 0.0 Sodium Level 139 Potassium Level 3.8 Chloride Level 104 Carbon Dioxide Level 27 Anion Gap 8 Blood Urea Nitrogen 9 Creatinine 0.42 L Est Glomerular Filtrat Rate mL/min > 60 Glucose Level 91 Calcium Level 8.7 Medications Medication Current Medications IV Flush (NS 3 ml) 3 ml PER PROTOCOL IV ; Start 06/27/18 at 19:30 Ondansetron HCl (Zofran Inj) 4 mg Q6H PRN IV NAUSEA/VOMITING; Start 06/27/18 at 19:30 Acetaminophen (Tylenol Tab) 650 mg Q6H PRN PO .PAIN 1-3 OR TEMP; Start 06/27/18 at 19:30 Acetaminophen/ Hydrocodone Bitart ([place] (5/325)) 1 tab Q6H PRN PO .MOD PAIN 4- 6; Start 06/27/18 at 19:30 Morphine Sulfate (morphine) 2 mg Q4H PRN IV .SEVERE PAIN 7-10; Start 06/27/18 at 19:30 Docusate Sodium (Colace) 100 mg Q12H PRN PO .CONSTIPATION Last administered on 06/29/18 08:37; Admin Dose 100 MG; Start 06/27/18 at 19:30 Magnesium Hydroxide (Milk Of Mag) 30 ml DAILY PRN PO .CONSTIPATION; Start 06/27/18 at 19:30 Sodium Chloride 1,000 ml @ 75 mls/hr [id number] IV Last administered on 06/29/18 08:37; Admin Dose 75 MLS/HR; Start 06/27/18 at 19:06 Lorazepam (Ativan) 0.5 mg Q6H PRN IV ANXIETY; Start 06/27/18 at 19:30 Albuterol/ Ipratropium (Duoneb) 3 ml Q4H RESP THERAPY PRN HHN SHORTNESS OF BREATH; Start 06/27/18 at 19:30 Hydralazine HCl (Apresoline) 10 mg Q6H PRN IV ELEVATED BLOOD PRESSURE; Start 06/27/18 at 19:30 Nitroglycerin (Nitroglycerin (Sl Tab) 0.4 Mg) 1 tab Q5M PRN SL ANGINA; Start 06/27/18 at 19:30 Enoxaparin Sodium (Lovenox) 75 mg Q12 SC Last administered on 06/29/18 08:47; Admin Dose 75 MG; Start 06/28/18 at 09:00 Atorvastatin Calcium (Lipitor) 40 mg DAILY@21 PO Last administered on 06/28/18at 20:43; Admin Dose 40 MG; Start 06/28/18 at 21:00 DAVID LALA Jun 29, 2018 11:02
--- NOTE | 2018-06-29 11:11 | CONS ---
Assessment/Plan Assessment/Plan Hospital Course 63 F w/o reported PMHx, who presents for evaluation of hemifacial numbness...for which neurology is consulted.. 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 Of note, she was additionally found to have acute pulmonary emboli...for which she is now on therapeutic anticoagulation. The clinical picture raises suspicion for intracardiac shunt.. CTA Head and Neck are without significant cerebrovascular pathology.. Echo is notable for an atrial septal aneurysm LDL, A1C, ESR, UDS ok; RPR neg P: Low threshold to repeat head CT for interval neurologic change, given anticoagulation in the context of acute stroke. Hold asa while on therapeutic anticoagulation.. Lipitor OK PT/OT/ST as necessary Other management per primary Will follow clinically Consultation Date/Type/Reason Admit Date/Time Jun 27, 2018 at 19:11 Type of Consult Neurology Reason for Consultation L face numbness/weakness; eval for stroke Requesting Provider: DAVID LALA Date/Time of Note DATE: 06/29/18 TIME: 11:10 24 HR Interval Summary Free Text/Dictation Continues acute care. Exam Vital Signs Vitals Vital Signs Date Temp Pulse Resp B/P (MAP) Pulse Ox O2 O2 Flow FiO2 Time Delivery Rate 06/29/18 61 08:09 06/29/18 Room Air 08:05 06/29/18 98.3 18 110/68 94 07:23 (82) 06/28/18 21 21:38 Intake and Output 06/28/18 06/28/18 06/29/18 1515:00 23:00 07:00 IntakeIntake Total 400 ml 1750 ml 525 ml BalanceBalance 400 ml 1750 ml 525 ml Exam PE: Gen Appearance: No Apparent Distress HEENT: Normocephalic Cardiovascular: Regular rate Lungs: Clear bilaterally Abdomen: Soft Extremities: Dry NE: The patient was alert and oriented.. Language was normal. Fund of knowledge was normal. Pupils were equal and reactive to light. There was no afferent pupillary defect. Visual johnson were normal. Funduscopic examination was limited. Extra-ocular movements were full. Ptosis was absent. There was no nystagmus. Facial sensation was diminished on the L. Face was symmetric with normal strength. Hearing was intact. Palate movements were normal. Neck strength was normal. There was normal tongue bulk and speed of movement. Tone was normal. Muscle bulk was normal. I did not see fasciculations. Arms and legs were strong. Vibration sensation was normal. Temperature and pinprick sensation was normal. Rapid alternating movements were normal. There was no dysmetria. There was no intention tremor. Gait was deferred due to bedrest. Arm and leg reflexes were 2+ and symmetric. Chaney's sign was absent. Plantar responses were flexor. JANINE SAMUELS NP Jun 29, 2018 11:11
[2018-06-29] MEDS: ATORVASTATIN 40 MG TAB PO SCH (20:30)
[2018-06-30] VITALS (11 sets, daily range): BP systolic 95–110; BP diastolic 51–67; PULSE 58–78; RESP 16–18
[2018-06-30] MEDS: ENOXAPARIN 80 MG/0.8 ML SYG SC SCH ×2 (09:23→20:19)
--- NOTE | 2018-06-30 11:12 | CONS ---
Assessment/Plan Assessment/Plan Hospital Course 63 F w/o reported PMHx, who presents for evaluation of hemifacial numbness...for which neurology is consulted.. 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 Of note, she was additionally found to have acute pulmonary emboli...for which she is now on therapeutic anticoagulation. The clinical picture raises suspicion for intracardiac shunt.. CTA Head and Neck are without significant cerebrovascular pathology.. Echo is notable for an atrial septal aneurysm LDL, A1C, ESR, UDS ok; RPR neg P: Low threshold to repeat head CT for interval neurologic change, given anticoagulation in the context of acute stroke. Hold asa while on therapeutic anticoagulation.. Lipitor OK PT/OT/ST as necessary Cont other medical management per primary Will follow Consultation Date/Type/Reason Admit Date/Time Jun 27, 2018 at 19:11 Type of Consult Neurology Reason for Consultation L face numbness/weakness; eval for stroke Requesting Provider: DAVID LALA Date/Time of Note DATE: 06/30/18 TIME: 11:11 24 HR Interval Summary Free Text/Dictation Continues acute care. Exam Vital Signs Vitals Vital Signs Date Temp Pulse Resp B/P (MAP) Pulse Ox O2 O2 Flow FiO2 Time Delivery Rate 06/30/18 73 08:25 06/30/18 Room Air 08:03 06/30/18 98.3 18 110/62 97 07:29 (78) 06/28/18 21 21:38 Intake and Output 06/29/18 06/29/18 06/30/18 1414:59 22:59 06:59 IntakeIntake Total 375 ml 1000 ml 500 ml BalanceBalance 375 ml 1000 ml 500 ml Exam PE: Gen Appearance: No Apparent Distress HEENT: Normocephalic Cardiovascular: Regular rate Lungs: Clear bilaterally Abdomen: Soft Extremities: Dry NE: The patient was alert and oriented.. Language was normal. Fund of knowledge was normal. Pupils were equal and reactive to light. There was no afferent pupillary defect. Visual johnson were normal. Funduscopic examination was limited. Extra-ocular movements were full. Ptosis was absent. There was no nystagmus. Facial sensation was diminished on the L. Face was symmetric with normal strength. Hearing was intact. Palate movements were normal. Neck strength was normal. There was normal tongue bulk and speed of movement. Tone was normal. Muscle bulk was normal. I did not see fasciculations. Arms and legs were strong. Vibration sensation was normal. Temperature and pinprick sensation was normal. Rapid alternating movements were normal. There was no dysmetria. There was no intention tremor. Gait was deferred due to bedrest. Arm and leg reflexes were 2+ and symmetric. Chaney's sign was absent. Plantar responses were flexor. JANINE SAMUELS NP Jun 30, 2018 11:12
--- NOTE | 2018-06-30 16:56 | PN ---
Date/Time of Note Date/Time of Note DATE: 06/30/18 TIME: 16:54 Assessment/Plan VTE Prophylaxis Risk score (from Ns)>0 risk: 2 SCD applied (from Ns): No SCD contraindicated: other (no) Pharmacological prophylaxis: LMWH Lines/Catheters IV C[facility]ter Type (from [facility]): [place] Assessment/Plan Assessment/Plan 63-year-old woman who presents with acute stroke 1. Acute L thalamic infarct. - Currently neuro exam shows symmetrical strength bilaterally - No focal deficits. - Continue statin. No aspirin while on anticoagulation. 2. Bilateral PE: Incidentally found on CT angio the neck. This was confirmed with CTPA - Patient just traveled back from [place]. She reported long flights as well as long car ride. -Continue patient on treatment dose Lovenox. - Anticipate discharge tomorrow on Eliquis. Result Diagram: 06/30/18 0546 06/30/1846 Subjective 24 Hr Interval Summary Free Text/Dictation Patient doing well, no complaints. Wants to go home. Exam/Review of Systems Exam Vitals Vital Signs Date Temp Pulse Resp B/P (MAP) Pulse Ox O2 O2 Flow FiO2 Time Delivery Rate 06/30/18 98.0 68 18 99/57 (71) 98 16:24 06/30/18 Room Air 13:22 06/28/18 21 21:38 Intake and Output 06/29/18 06/29/18 06/30/18 1515:00 23:00 07:00 IntakeIntake Total 375 ml 1000 ml 500 ml BalanceBalance 375 ml 1000 ml 500 ml Exam Constitutional: lying in bed, no acute distress Head: normocephalic, atraumatic Eyes: EOMI, PERRL Respiratory: normal air movement Cardiovascular: regular rate and rhythm, nl pulses Gastrointestinal: soft Extremities: normal pulses Results Results 24hrs Laboratory Tests Test 06/30/18 05:46 White Blood Count 4.8 Red Blood Count 4.78 Hemoglobin 13.8 Hematocrit 41.5 Mean Corpuscular Volume 86.8 Mean Corpuscular Hemoglobin 28.9 L Mean Corpuscular Hemoglobin Concent 33.3 Red Cell Distribution Width 12.8 Platelet Count 267 Mean Platelet Volume 9.9 Immature Granulocytes % 0.200 Neutrophils % 54.2 Lymphocytes % 31.3 Monocytes % 8.5 Eosinophils % 5.0 Basophils % 0.8 Nucleated Red Blood Cells % 0.0 Immature Granulocytes # 0.010 Neutrophils # 2.6 Lymphocytes # 1.5 Monocytes # 0.4 Eosinophils # 0.2 Basophils # 0.0 Nucleated Red Blood Cells # 0.0 Sodium Level 141 Potassium Level 4.4 Chloride Level 105 Carbon Dioxide Level 31 Anion Gap 5 Blood Urea Nitrogen 10 Creatinine 0.43 L Est Glomerular Filtrat Rate mL/min > 60 Glucose Level 93 Calcium Level 9.3 Medications Medication Current Medications IV Flush (NS 3 ml) 3 ml PER PROTOCOL IV ; Start 06/27/18 at 19:30 Ondansetron HCl (Zofran Inj) 4 mg Q6H PRN IV NAUSEA/VOMITING; Start 06/27/18 at 19:30 Acetaminophen (Tylenol Tab) 650 mg Q6H PRN PO .PAIN 1-3 OR TEMP; Start 06/27/18 at 19:30 Acetaminophen/ Hydrocodone Bitart ([place] (5/325)) 1 tab Q6H PRN PO .MOD PAIN 4- 6; Start 06/27/18 at 19:30 Morphine Sulfate (morphine) 2 mg Q4H PRN IV .SEVERE PAIN 7-10; Start 06/27/18 at 19:30 Docusate Sodium (Colace) 100 mg Q12H PRN PO .CONSTIPATION Last administered on 06/29/18at 08:37; Admin Dose 100 MG; Start 06/27/18 at 19:30 Magnesium Hydroxide (Milk Of Mag) 30 ml DAILY PRN PO .CONSTIPATION; Start 06/27/18 at 19:30 Lorazepam (Ativan) 0.5 mg Q6H PRN IV ANXIETY; Start 06/27/18 at 19:30 Albuterol/ Ipratropium (Duoneb) 3 ml Q4H RESP THERAPY PRN HHN SHORTNESS OF BREATH; Start 06/27/18 at 19:30 Hydralazine HCl (Apresoline) 10 mg Q6H PRN IV ELEVATED BLOOD PRESSURE; Start 06/27/18 at 19:30 Nitroglycerin (Nitroglycerin (Sl Tab) 0.4 Mg) 1 tab Q5M PRN SL ANGINA; Start 06/27/18 at 19:30 Enoxaparin Sodium (Lovenox) 75 mg Q12 SC Last administered on 06/30/18at 09:23; Admin Dose 75 MG; Start 06/28/18 at 09:00 Atorvastatin Calcium (Lipitor) 40 mg DAILY@21 PO Last administered on 06/29/18at 20:30; Admin Dose 40 MG; Start 06/28/18 at 21:00 JOÃO ZHANG MD Jun 30, 2018 16:56
[2018-06-30] MEDS: ATORVASTATIN 40 MG TAB PO SCH (20:07)
[2018-07-01] VITALS (8 sets, daily range): BP systolic 95–102; BP diastolic 53–56; PULSE 58–92; RESP 17–18
[2018-07-01] MEDS: ENOXAPARIN 80 MG/0.8 ML SYG SC SCH (09:05)
[2018-07-01] MEDS ORDERED: APIX5TAB PO (10:30)
[2018-07-01] MEDS ORDERED: ATOR40TA68 PO (10:30)
--- NOTE | 2018-07-01 10:32 | PDOCDIS ---
Discharge Instructions DIAGNOSIS Discharge Diagnosis Thalamic stroke Bilateral pulmonary embolism CONDITION [id number] Patient Condition: [id number] Good HOME CARE INSTRUCTIONS: [id number] Diet Instructions: [id number] Regular ACTIVITY: [id number] Activity Restrictions: [id number] No Restrictions FOLLOW UP/APPOINTMENTS Follow-up Plan 1. Take Eliquis (apixaban) 2 tabs (10mg) twice daily for 7 days, then switch to 1 tab (5mg) twice daily. This is to treat the blood clots in your lungs. 2. Take atorvastatin as prescribed. This reduces your risk of future strokes and heart attacks. 3. See your primary care doctor in 1-2 weeks. 4. Avoid aspirin, and NSAIDs like ibuprofen while you are on apixaban. You will be at higher risk of bruising and bleeding. 1. [place] Eliquis (apixaban) 2 pastillas (10 mg) dos veces al da jorge 7 felix, luego cambie a 1 pestaa (5 mg) dos veces al da. [place] es para tratar los cogulos de kenny en johana pulmones. 2. [place] la atorvastatina segn lo prescrito. [place] reduce ceron riesgo de futuros accidentes cerebrovasculares y ataques cardacos. 3. Consulte a ceron mdico de atencin primaria en 1-2 semanas. 4. [place] la aspirina y los [place] jose el ibuprofeno mientras diann apixaban. Usted estar en mayor riesgo de moretones y sangrado. JOÃO ZHANG MD Jul 01, 2018 10:32
--- NOTE | 2018-07-01 11:06 | CONS ---
Assessment/Plan Assessment/Plan Hospital Course 63 F w/o reported PMHx, who presents for evaluation of hemifacial numbness...for which neurology is consulted.. 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 Of note, she was additionally found to have acute pulmonary emboli...for which she is now on therapeutic anticoagulation. The clinical picture raises suspicion for intracardiac shunt.. CTA Head and Neck are without significant cerebrovascular pathology.. Echo is notable for an atrial septal aneurysm LDL, A1C, ESR, UDS ok; RPR neg P: Hold asa while on therapeutic anticoagulation.. Lipitor OK PT/OT/ST as necessary Other medical management per primary Consultation Date/Type/Reason Admit Date/Time Jun 27, 2018 at 19:11 Type of Consult Neurology Reason for Consultation L face numbness/weakness; eval for stroke Requesting Provider: DAVID LALA Date/Time of Note DATE: 07/01/18 TIME: 11:05 Exam Vital Signs Vitals Vital Signs Date Temp Pulse Resp B/P (MAP) Pulse Ox O2 O2 Flow FiO2 Time Delivery Rate 07/01/18 58 09:09 07/01/18 98.2 18 102/56 95 07:17 (71) 07/01/18 Room Air 03:58 06/28/18 21 21:38 Intake and Output 06/30/18 06/30/18 07/01/18 1515:00 23:00 07:00 IntakeIntake Total 1600 ml 200 ml BalanceBalance 1600 ml 200 ml JANINE SAMUELS NP Jul 01, 2018 11:06 FELICITY SMILEY Jul 01, 2018 13:20
--- NOTE | 2018-07-01 14:07 | DS ---
Date/Time of Note Date/Time of Note DATE: 07/01/18 TIME: 14:03 Discharge Summary Admission/Discharge Info Admit Date/Time Jun 27, 2018 at 19:11 Discharge Date/Time Jul 01, 2018 at 12:40 Discharge Diagnosis Thalamic stroke Bilateral pulmonary embolism Patient Condition: Good Consults Dr. Nguyen, neurology Procedures None Hx of Present Illness This is a 63-year-old female with no significant past medical history who was brought to the ER for left facial numbness/droop, blurry vision, generalized weakness, dizziness. Patient just returned back from [place]. She slept most of the day and woke up around 1500 with the above symptoms. When presented to ER, vitals were stable. Head CT old infarct without acute intracranial findings. CT angios of the head and neck shows focal hypodensity in the white matter of the right frontal lobe may be from age indeterminate ischemia, but without hemodynamically significant stenosis. Incidentally however, PE was noted. CTPA was then done which showed bilateral PE. As mentioned above, patient just flew back from [place]. Vital stable, oxygen saturation 94-98% on room air. Hospital Course For incidentally found bilateral pulmonary embolism, the patient was started on enoxaparin. Interestingly she had no cough, dyspnea, or other respiratory or R heart symptoms. She will be discharged on apixaban and this was cleared by her insurance. Her neurologic deficits quickly resolved. She was seen by physical and speech therapy and was freely ambulatory. She was started on atorvastatin. After discussion with neurology, we will not start aspirin while she is on anticoagulants as this may increase the risk of hemorrhagic conversion. Home Meds Active Scripts Apixaban* (Eliquis*) 5 Mg Tablet, 5 MG PO BID, #90 TAB 2 tabs (10mg) twice daily for 7 days, then 1 tab (5mg) daily. Prov:JOÃO ZHANG MD 07/01/18 Atorvastatin* (Atorvastatin*) 40 Mg Tablet, 40 MG PO DAILY@21, #90 TAB Prov:JOÃO ZHANG MD 07/01/18 Reported Medications Terbinafine Hcl* (Terbinafine Hcl*) 250 Mg Tablet, 250 MG PO DAILY, TAB 06/27/18 Follow-up Plan 1. Take Eliquis (apixaban) 2 tabs (10mg) twice daily for 7 days, then switch to 1 tab (5mg) twice daily. This is to treat the blood clots in your lungs. 2. Take atorvastatin as prescribed. This reduces your risk of future strokes and heart attacks. 3. See your primary care doctor in 1-2 weeks. 4. Avoid aspirin, and NSAIDs like ibuprofen while you are on apixaban. You will be at higher risk of bruising and bleeding. 1. [place] Eliquis (apixaban) 2 pastillas (10 mg) dos veces al da jorge 7 felix, luego cambie a 1 pestaa (5 mg) dos veces al da. [place] es para tratar los cogulos de kenny en johana pulmones. 2. [place] la atorvastatina segn lo prescrito. [place] reduce ceron riesgo de futuros accidentes cerebrovasculares y ataques cardacos. 3. Consulte a ceron mdico de atencin primaria en 1-2 semanas. 4. [place] la aspirina y los IS[place] jose el ibuprofeno mientras diann apixaban. Usted estar en mayor riesgo de moretones y sangrado. Primary Care Provider Not On Staff Doctor Time spent on discharge: > 30 minutes Pending Labs Laboratory Tests Test 07/01/18 07:08 White Blood Count 4.8 10^3/ul (4.8-10.8) Red Blood Count 4.69 10^6/ul (4.20-5.40) Hemoglobin 13.7 g/dl (12.0-16.0) Hematocrit 40.3 % (37.0-47.0) Mean Corpuscular Volume 85.9 fl (82.0-101.0) Mean Corpuscular Hemoglobin 29.2 pg (29.0-33.0) Mean Corpuscular Hemoglobin Concent 34.0 g/dl (32.0-37.0) Red Cell Distribution Width 12.9 % (11.5-14.5) Platelet Count 266 10^3/UL (140-415) Mean Platelet Volume 10.2 fl (7.4-10.4) Immature Granulocytes % 0.200 % (0.001-0.429) Neutrophils % 57.7 % (39.0-77.0) Lymphocytes % 27.1 % (15.0-51.0) Monocytes % 9.6 % (0.0-11.0) Eosinophils % 4.4 % (0.0-7.0) Basophils % 1.0 % (0.0-2.0) Nucleated Red Blood Cells % 0.0 /100WBC (0.0-0.0) Immature Granulocytes # 0.010 10^3/ul (0.0-0.031) Neutrophils # 2.8 10^3/ul (1.6-7.5) Lymphocytes # 1.3 10^3/ul (0.8-2.9) Monocytes # 0.5 10^3/ul (0.3-0.9) Eosinophils # 0.2 10^3/ul (0.0-0.5) Basophils # 0.1 10^3/ul (0.0-0.1) Nucleated Red Blood Cells # 0.0 10^3/ul (0.0-0.0) Sodium Level 141 mmol/L (135-144) Potassium Level 4.1 mmol/L (3.5-5.1) Chloride Level 103 mmol/L (97-110) Carbon Dioxide Level 28 mmol/L (21-31) Anion Gap 10 (5-13) Blood Urea Nitrogen 10 mg/dl (7-20) Creatinine 0.43 mg/dl (0.44-1.00) Est Glomerular Filtrat Rate mL/min > 60 mL/min (>60) Glucose Level 82 mg/dl (70-220) Calcium Level 9.1 mg/dl (8.4-10.2) JOÃO ZHANG MD Jul 01, 2018 14:07
== END 2018-07-01 12:40 | disposition still patient (30) | DRG 64 ==
LOC: E/R 16:29 → TEL 19:11
PROVIDERS: ADMIT Internal Medicine; ATTEND Internal Medicine
DX: I63.9 Cerebral infarction, unspecified (principal); I26.99 Other pulmonary embolism without acute cor pulmonale; G81.94 Hemiplegia, unspecified affecting left nondominant side
CPT/HCPCS: 36415; 70450; 70496; 70498; 70551; 71045; 71275; 80048; 80061; 80307; 81001; 82550; 82553; 83036; 83735; 84100; 84439; 84443; 84484; 85025; 85610; 85651; 85730; 86592; 92610; 93005; 93306; 93880; 93970; 96372; 97161; Q9967

== ENCOUNTER 2018-09-17 15:33 | Emergency (ER) | payer OTHER ==
[~2018-09-17] VITALS: Wt 77.3 kg
[~2018-09-17 15:33] MED LIST: APIX5TAB PO; ATOR40TA68 PO; TERB250T13 PO
[2018-09-17] MEDS ORDERED: SOD CHLORIDE 0.9% 500 ML IV STA (19:15)
[2018-09-17] MEDS ORDERED: FENTAnyl 50 MCG/ML VIAL IV ONE (19:30)
[2018-09-17] MEDS ORDERED: IBUP-1561 PO (21:23)
[2018-09-17] MEDS ORDERED: ACET500C5 PO (21:23)
--- NOTE | 2018-09-17 21:25 | ERD ---
ER Documentation Chief Complaint Chief Complaint SYNCOPAL EPISODE DURING SHOWER TODAY HPI 63-year-old female brought in by family after she had a near syncopal episode in the shower today. She states that she has taken tramadol once in the past and subsequently had dizziness. Since then she has never taken tramadol and was taking ibuprofen for a recent hip injury. However she decided to try tramadol again today and after that, she became dizzy in the shower and fell over onto her left side. She denies hitting her head. No loss of consciousness. Her only complaints is left-sided rib pain that she hit against an object. She is denying any shortness of breath. The pain is aching, sharp, 9 out of 10, nonradiating. No associated symptoms. No other injuries ROS All systems reviewed and are negative except as per history of present illness. Medications Home Meds Active Scripts Acetaminophen* (Tylophen*) 500 Mg Capsule, 2 CAP PO Q8H PRN for PAIN AND OR ELEVATED TEMP, #20 CAP Prov:JUAN BALTAZAR MD 09/17/18 Ibuprofen* (Motrin*) 400 Mg Tab, 400 MG PO Q6H PRN for PAIN AND OR ELEVATED TEMP, #30 TAB Prov:JUAN BALTAZAR MD 09/17/18 Apixaban* (Eliquis*) 5 Mg Tablet, 5 MG PO BID, #90 TAB 2 tabs (10mg) twice daily for 7 days, then 1 tab (5mg) daily. Prov:JOÃO ZHANG MD 07/01/18 Atorvastatin* (Atorvastatin*) 40 Mg Tablet, 40 MG PO DAILY@21, #90 TAB Prov:JOÃO ZHANG MD 07/01/18 Reported Medications Terbinafine Hcl* (Terbinafine Hcl*) 250 Mg Tablet, 250 MG PO DAILY, TAB 06/27/18 Allergies Allergies: Coded Allergies: No Known Allergy (Unverified , 06/27/18) PMhx/Soc History of Surgery: Yes (TUBAL LIGATION ) Anesthesia Reaction: No Hx Neurological Disorder: Yes (CVA) Hx Respiratory Disorders: Yes (Pulmonary embolism, now on Eliquis) Hx Cardiac Disorders: No Hx Psychiatric Problems: No Hx Miscellaneous Medical Probl: No Hx Alcohol Use: No Hx Substance Use: No Hx Tobacco Use: No Smoking Status: Never smoker FmHx Family History: No diabetes Physical Exam Vitals Vital Signs Date Temp Pulse Resp B/P (MAP) Pulse Ox O2 O2 Flow FiO2 Time Delivery Rate 09/17/18 76 23 106/73 98 Room Air 21:35 (84) 09/17/18 71 20 119/74 97 Room Air 20:26 (89) 09/17/18 77 13 135/85 100 Room Air 19:13 (102) 09/17/18 98.7 74 20 105/59 98 15:41 (74) Physical Exam Const: Distress noted secondary to pain. Nontoxic Head: Atraumatic, no tenderness to palpation of the scalp Eyes: Normal Conjunctiva, PERRLA, EOMI ENT: No evidence of facial injury. Normal External Ears, Nose and Mouth. Neck: Full range of motion. No meningismus. No C-spine tenderness Chest wall: Tenderness to palpation of the lateral chest wall with no crepitus, ecchymoses, or bony deformities Resp: Clear to auscultation bilaterally Cardio: Regular rate and rhythm, no murmurs Abd: Soft, non tender, non distended. Normal bowel sounds Skin: No petechiae or rashes Back: No midline or flank tenderness Ext: No cyanosis, or edema. Normal to inspection and palpation with normal range of motion at all joints. Pelvis stable. No deformities noted. Neur: Awake and alert, normal speech, no facial asymmetry, moving all extremities Psych: Normal Mood and Affect Result Diagram: 09/17/18190909/17/181909 Results 24 hrs Laboratory Tests Test 09/17/18 19:10 09/17/18 19:20 White Blood Count 8.8 10^3/ul Red Blood Count 4.34 10^6/ul Hemoglobin 12.5 g/dl Hematocrit 37.9 % Mean Corpuscular Volume 87.3 fl Mean Corpuscular Hemoglobin 28.8 pg Mean Corpuscular Hemoglobin Concent 33.0 g/dl Red Cell Distribution Width 13.1 % Platelet Count 250 10^3/UL Mean Platelet Volume 9.6 fl Immature Granulocytes % 0.200 % Neutrophils % 79.0 % Lymphocytes % 14.0 % Monocytes % 6.0 % Eosinophils % 0.3 % Basophils % 0.5 % Nucleated Red Blood Cells % 0.0 /100WBC Immature Granulocytes # 0.020 10^3/ul Neutrophils # 6.9 10^3/ul Lymphocytes # 1.2 10^3/ul Monocytes # 0.5 10^3/ul Eosinophils # 0.0 10^3/ul Basophils # 0.0 10^3/ul Nucleated Red Blood Cells # 0.0 10^3/ul Sodium Level 139 mmol/L Potassium Level 4.1 mmol/L Chloride Level 100 mmol/L Carbon Dioxide Level 30 mmol/L Anion Gap 9 Blood Urea Nitrogen 12 mg/dl Creatinine 0.51 mg/dl Est Glomerular Filtrat Rate mL/min > 60 mL/min Glucose Level 141 mg/dl Calcium Level 8.9 mg/dl Troponin I < 0.012 ng/ml Bedside Glucose 128 mg/dL Current Medications Medications Dose Sig/Luisito Start Time Status Last (Trade) Ordered Route PRN Stop Time Admin Dose Reason Admin Sodium 500 ml @ Q1H STAT 09/17/18 DC 09/17/18 Chloride 500 mls/hr IV 19:15 09/17/18 19:22 20:14 Fentanyl 25 mcg ONCE ONCE 09/17/18 DC 09/17/18 (Sublimaze) IV 19:30 09/17/18 19:22 19:31 Procedures/MDM EMERGENT LABS AND DIAGNOSTIC STUDIES: Lab Results above were reviewed and interpreted by me. CBC: no anemia or evidence of infection BMP: [no e/o clinically significant electrolyte abnormality severe acidosis, alkalosis, renal failure, diabetic ketoacidosis] Troponin within normal limits, not indicative of cardiac ischemia 12-lead EKG was interpreted by Shelby Baltazar MD: Normal Sinus Rhythm Normal axis Normal intervals No acute ST or T wave changes suggestive of acute ischemia or STEMI. Radiology Results as interpreted by Radiology below were reviewed by Hosea Baltazar MD: Chest x-ray shows no acute abnormalities Left rib x-rays show no acute fractures or other abnormalities Initial Nursing notes reviewed. Previous Medical Records requested via the Electronic Health Record. EMERGENCY DEPARTMENT COURSE / MEDICAL DECISION MAKING: patient presents after near syncopal episode, likely a side effect of the medication she took today, also complaining of left chest wall injury. X-rays did not show any evidence of pneumothorax or rib fractures. She received 1 small dose of fentanyl with improvement of her symptoms. Last did not show any significant abnormalities. No ischemia or arrhythmia on EKG. I have a low suspicion for ACS, worsening PE, dissection, or acute infection. Upon reevaluation, patient feels much better after fentanyl. I advised she take both ibuprofen and Tylenol for her pain with discontinuation of tramadol. Patient is agreeable with this plan. Return precautions discussed. Follow-up with PCP recommended in 2 days. Patient's blood pressure was elevated (>120/80) but appears stable without evidence of hypertensive emergency or urgency. The patient was counseled about the risks of hypertension and urged to pursue outpatient monitoring and therapy within a week with their primary care physician. Departure Diagnosis: Primary Impression: Near syncope Additional Impression: Contusion of rib on left side Encounter type: initial encounter Qualified Codes: S20.212A - Contusion of left front wall of thorax, initial encounter Condition: Stable Patient Instructions: Rib Contusion, Near Syncope, Unknown Additional Instructions: Si johana sintomas empeoran, regresa a la keena de emergencias. Celina sandra joanne con ceron medico primario en 2 arango. JUAN BALTAZAR MD Sep 17, 2018 21:24
[2018-09-17 21:35] VITALS: BP 106/73; PULSE 76; RESP 23
== END 2018-09-17 21:44 | disposition home or self-care (01) ==
LOC: E/R 15:33
DX: R55 Syncope and collapse (principal); S20.212A Contusion of left front wall of thorax, initial encounter; W01.198A Fall on same level from slipping, tripping and stumbling with subsequent striking against other object, initial encounter; Y92.9 Unspecified place or not applicable; Z79.01 Long term (current) use of anticoagulants; Z86.73 Personal history of transient ischemic attack (TIA), and cerebral infarction without residual deficits
CPT/HCPCS: 36415; 71045; 71100; 80048; 82962; 84484; 85025; 93005; 96374; J3010; J7040; Z7502